=== PATIENT | female | born 1970 | race Caucasian/White ===

== ENCOUNTER → 2017-05-01 | Outpatient (CLI) | payer OTHER ==
--- NOTE | 2017-05-02 16:15 | REP ---
BILATERAL MAMMOGRAM WITH DIAGNOSTIC MAMMOGRAM LEFT BREAST AND LEFT BREAST ULTRASOUND: Family history of breast cancer in maternal grandmother. There is reportedly a palpable abnormality at 12-o'clock in the left breast and that area is marked on the skin with a triangular marker. Comparison made with multiple priors exams, the most recent of which is 10/28/2015. The breast parenchyma is heterogeneously dense. This limits the sensitivity of the mammogram. At the 12-o'clock region of the left breast there does appear an ill-defined nodule present which is not seen on prior studies. Approximate diameter is 1.3 cm. No other definite mass or architectural distortion is seen bilaterally. No clustered microcalcifications are seen. Real-time sonographic evaluation of the 12-o'clock region of the left breast demonstrates a mass with somewhat irregular margins. Duplex Doppler evaluation does demonstrate areas of internal blood flow. It measures 2.6 x 1.7 x 2.3 cm. This appears suspicious and ultrasound guided biopsy is recommended. IMPRESSION: ACR 4 suspicious. There does appear to be an ill-defined nodule at the 12-o'clock position of the left breast at the site of the reported palpable abnormality on the left breast mammogram. By ultrasound this appears to correspond to a solid mass with a maximum diameter of 2.6 cm. This is suspicious, ACR 4. Recommend ultrasound guided biopsy. BI-RADS/ACR category 4 mammogram. Suspicious abnormality - biopsy should be considered. Usually requires biopsy. This mammogram was interpreted with the aid of an FDA-approved computer-aided detection system. The patient states she/he had a clinical breast exam in April 2016. The patient letter being requested is M4. Signed by Jessee Cochran MD 05/03/2017 08:25 P
== END ==
LOC: M RAD 10:13
PROVIDERS: ATTEND Nurse Practitioner Family
DX: N63.20 Unspecified lump in the left breast, unspecified quadrant (principal); R92.8 Other abnormal and inconclusive findings on diagnostic imaging of breast
CPT/HCPCS: 76642; G0204

== ENCOUNTER → 2017-05-21 | Outpatient (REF) | payer OTHER | LOC: M LAB REF 18:35 | DX: N63.20 Unspecified lump in the left breast, unspecified quadrant (principal) ==

== ENCOUNTER → 2017-06-27 | Outpatient (CLI) | payer OTHER | LOC: M WHC 13:02 | DX: R93.8 Abnormal findings on diagnostic imaging of other specified body structures (principal) | CPT/HCPCS: 76830 ==

== ENCOUNTER → 2017-06-27 | Outpatient (REF) | payer OTHER ==
[2017-06-29 14:17] LABS: HPV HYBRID CAPTURE II Negative (Negative)
== END ==
LOC: M SFHCWAGY 14:27
DX: Z12.4 Encounter for screening for malignant neoplasm of cervix (principal)

== ENCOUNTER 2017-10-14 10:38 | Emergency (ER) | payer OTHER ==
[2017-10-14 11:43] LABS: HEMATOCRIT 27.3 % (36.0-47.0); MEAN CORPUSCULAR HEMOGLOBIN 37.2 pg (27.0-33.0); MEAN CORPUSCULAR VOLUME 112.8 fl (80.0-96.0); PLATELET COUNT, AUTOMATED 248 10^3/uL (150-450); RED BLOOD COUNT 2.42 10^6/uL (4.00-5.40)
[2017-10-14 12:07] LABS: LACTIC ACID SEPSIS PROTOCOL 1.1 MMOL/L (0.4-2.0)
[2017-10-14 12:15] LABS: ADD MANUAL DIFFER YES; DIFF SLIDE NUMBER 107; POS COUNT POS FLAG; POSITIVE DIFF POS FLAG; POSITIVE MORPH POS FLAG
[2017-10-14 12:16] LABS: WHITE BLOOD COUNT 72.2 10^3/uL (4.0-10.0)
[2017-10-14 12:19] LABS: ALBUMIN 3.7 GM/DL (3.2-5.2); ALBUMIN/GLOBULIN RATIO 1.19 (1.00-1.93); ALKALINE PHOSPHATASE 158 U/L (45-117); ALT/SGPT 55 U/L (12-78); ANION GAP 7 MEQ/L (8-16); AST/SGOT 20 U/L (7-37); BILIRUBIN,DIRECT < 0.1 MG/DL (0.0-0.2); BILIRUBIN,TOTAL 0.2 MG/DL (0.2-1.0); BLOOD UREA NITROGEN 17 MG/DL (7-18); CALCIUM LEVEL 8.5 MG/DL (8.5-10.1); CARBON DIOXIDE LEVEL 29 MEQ/L (21-32); CHLORIDE LEVEL 107 MEQ/L (98-107); GLOMERULAR FILTRATION RATE > 60.0 (>58); GLUCOSE, FASTING 85 MG/DL (70-100); LDH LACTATE DEHYDROGENASE 258 U/L (84-246); POTASSIUM SERUM 3.5 MEQ/L (3.5-5.1); SODIUM LEVEL 143 MEQ/L (136-145); TOTAL PROTEIN 6.8 GM/DL (6.4-8.2); URIC ACID 3.4 MG/DL (2.6-6.0)
[2017-10-14 12:22] LABS: AMORPHOUS SEDIMENT RFX LARGE (NEGATIVE); KETONE, URINE AUTO RFX NEGATIVE (NEGATIVE); LEUKOCYTE ESTERASE UR AUTO RFX NEGATIVE (NEGATIVE); NITRITE, URINE AUTO RFX NEGATIVE (NEGATIVE); RBC, URINE AUTO RFX 1 /HPF (0-3); SPECIFIC GRAVITY UR AUTO RFX 1.015 (1.002-1.035); SQUAM EPITHELIAL CELL UR AURFX 0 /HPF (0-6); WBC, URINE AUTO RFX 7 /HPF (0-3)
[2017-10-14] MEDS ORDERED: ISOVUE-370 76% 100ML VIAL (Q9967) As Ordered (12:26)
[2017-10-14 12:49] LABS: BANDS 3 % (< 11); LYMPHOCYTES 3 % (16-52); MONOCYTES 1 % (0-8); NEUTROPHILS 93 % (35-75); TOXIC GRANULATION 2+
[2017-10-14 12:51] LABS: PLATELET ESTIMATE NORMAL (NORMAL)
[2017-10-14 12:55] LABS: HYPOCHROMASIA 1+; POIKILOCYTOSIS 1+
[2017-10-14 12:56] LABS: ANISOCYTOSIS 2+
[2017-10-14 13:08] LABS: C REACTIVE PROTEIN QUANTITATIV 0.31 MG/DL (0.00-0.30)
[2017-10-14 13:22] LABS: ERYTHROCYTE SEDIMENTATION RATE 9 mm/hr (0-20)
== END 2017-10-14 14:26 | disposition home or self-care (01) ==
LOC: M ED 10:38
DX: M54.2 Cervicalgia (principal); D72.829 Elevated white blood cell count, unspecified; Z79.899 Other long term (current) drug therapy
CPT/HCPCS: Q9967

== ENCOUNTER → 2017-12-18 | Outpatient (CLI) | payer OTHER | LOC: M ONCR 09:04 | DX: C50.919 Malignant neoplasm of unspecified site of unspecified female breast (principal) | CPT/HCPCS: G0463 ==

== ENCOUNTER 2017-12-21 13:31 | Outpatient (RCR) | payer OTHER | END 2018-01-11 | LOC: M ONCR 13:31 | DX: C50.812 Malignant neoplasm of overlapping sites of left female breast (principal) | CPT/HCPCS: 77300 ==

== ENCOUNTER → 2017-12-25 | Outpatient (CLI) | payer OTHER | LOC: M WHC 09:07 | DX: D25.0 Submucous leiomyoma of uterus (principal) ==

== ENCOUNTER 2018-05-24 13:02 | Emergency (ER) | payer OTHER ==
[~2018-05-24] VITALS: Ht 152.4 cm; Wt 52.7 kg
[~2018-05-24 13:02] MED LIST: APRE125C PO; CYCL10TA PO; DECA4TAB PO; NEUL0.6I SC; PERC5TAB12 PO; PROC5TA PO
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
[2018-05-24] MEDS ORDERED: PERC5TAB12 PO (14:34)
[2018-05-24 14:55] VITALS: BP 116/65
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
== END 2018-05-24 14:57 | disposition home or self-care (01) ==
LOC: M ED 13:02 → EDBD 13:02 → M ED 14:57
DX: S16.1XXA Strain of muscle, fascia and tendon at neck level, initial encounter (principal); S32.050A Wedge compression fracture of fifth lumbar vertebra, initial encounter for closed fracture; S32.110A Nondisplaced Zone I fracture of sacrum, initial encounter for closed fracture; V49.49XA Driver injured in collision with other motor vehicles in traffic accident, initial encounter; Y92.410 Unspecified street and highway as the place of occurrence of the external cause

== ENCOUNTER → 2021-02-13 | Outpatient (CLI) | payer OTHER ==
[~2021-02-13] MED LIST changes: +CYCL-707 PO; -CYCL10TA PO; -PROC5TA PO; +PROC5TAB57 PO
[2021-02-13 11:02] LABS: BASO % 0.6 % (0.0-1.0); EOS % 0.6 % (0.0-3.0); HEMATOCRIT 37.8 % (36.0-47.0); HEMOGLOBIN 12.2 g/dl (12.0-15.5); LYMPH # 2.1 10^3/uL (1.5-5.0); LYMPH % 40.4 % (24.0-44.0); MEAN CORPUSCULAR HEMOGLOBIN 30.3 pg (27.0-33.0); MEAN CORPUSCULAR HGB CONC 32.3 g/dl (32.0-36.5); MONO # 0.4 10^3/uL (0.0-0.8); NEUTROPHILS # 2.6 10^3/uL (1.5-8.5); PLATELET COUNT, AUTOMATED 186 10^3/uL (150-450); RED BLOOD COUNT 4.02 10^6/uL (4.00-5.40)
[2021-02-13 12:03] LABS: PLATELET CLUMPS SMALL AMT; PLATELET ESTIMATE NORMAL (NORMAL)
[2021-02-14 07:59] LABS: WHITE BLOOD COUNT 5.1 10^3/uL (4.0-10.0)
[2021-02-15 16:10] LABS: Lyme Disease IgG/IgM Antibodie <0.91 ISR (0.00-0.90); Lyme Disease IgM Ab Quantitati <0.80 index (0.00-0.79)
== END ==
LOC: M LAB 09:44
PROVIDERS: ATTEND Physician Assistant
DX: S40.261A Insect bite (nonvenomous) of right shoulder, initial encounter (principal); Y92.89 Other specified places as the place of occurrence of the external cause; Y93.9 Activity, unspecified

== ENCOUNTER → 2021-06-10 | Outpatient (REF) | payer OTHER | LOC: M WUC 15:28 | PROVIDERS: ATTEND Physician Assistant Medical | DX: J02.9 Acute pharyngitis, unspecified (principal) ==

== ENCOUNTER → 2021-06-30 | Outpatient (CLI) | payer OTHER ==
[~2021-06-30] MED LIST changes: +E-Z-GAS II EFFERVESCENT PACKET (SODIUM BICARB./CITRIC ACID/SIMETHICONE) As Ordered ONE; +E-Z-HD 98% w/w 340GM SUSP BTL As Ordered ONE; +E-Z-PAQUE 96% w/w SUSP 176GM BTL As Ordered ONE; +ISOVUE-370 76% 100ML VIAL As Ordered ONE
== END ==
LOC: M RAD 07:52
PROVIDERS: ATTEND Otolaryngology
DX: R13.10 Dysphagia, unspecified (principal); K21.9 Gastro-esophageal reflux disease without esophagitis
CPT/HCPCS: 70491; 74220; Q9967